=== PATIENT | female | born 1985 | race Caucasian/White ===

== ENCOUNTER 2019-10-23 13:07 | Outpatient (CLI) | payer OTHER | END 2019-10-23 13:23 | disposition home or self-care (01) | LOC: NST 13:07 | DX: Z34.83 Encounter for supervision of other normal pregnancy, third trimester (principal) ==

== ENCOUNTER 2019-11-01 08:55 | Inpatient (IN) | payer OTHER ==
[~2019-11-01] VITALS: Ht 157.5 cm; Wt 2.7 kg
[2019-12-01] MEDS ORDERED: PRENATAL PLUS1 EAC1 PO (19:24)
[2019-12-01] MEDS ORDERED: IRON325 MG PO (19:25)
== END 2019-12-05 19:50 | disposition home or self-care (01) | DRG 788 ==
LOC: OB/GYN 11-27 15:15 → LDR 12-01 19:12 → SURG-SUITE 12-01 19:12
PROVIDERS: ADMIT Obstetrics & Gynecology
PROC: 4A1HXCZ Monitoring of Products of Conception, Cardiac Rate, External Approach (ICD-10-PCS; 2019-12-01)
PROC: 3E033VJ Introduction of Other Hormone into Peripheral Vein, Percutaneous Approach (ICD-10-PCS; 2019-12-01)
PROC: 4A033R1 Measurement of Arterial Saturation, Peripheral, Percutaneous Approach (ICD-10-PCS; 2019-12-02)
PROC: 10D00Z1 Extraction of Products of Conception, Low, Open Approach (ICD-10-PCS; principal; 2019-12-02 14:00)
DX: O61.0 Failed medical induction of labor (principal); O62.0 Primary inadequate contractions; Z3A.40 40 weeks gestation of pregnancy; Z37.0 Single live birth

== ENCOUNTER 2019-11-22 09:05 | Outpatient (CLI) | payer OTHER | END 2019-11-22 10:05 | disposition home or self-care (01) | LOC: NST 09:05 | DX: Z34.83 Encounter for supervision of other normal pregnancy, third trimester (principal) ==

== ENCOUNTER 2019-11-29 07:30 | Outpatient (CLI) | payer OTHER | END 2019-11-29 08:22 | disposition home or self-care (01) | LOC: NST 07:30 | DX: Z34.83 Encounter for supervision of other normal pregnancy, third trimester (principal) ==

== ENCOUNTER 2021-04-15 18:23 | Emergency (ER) | payer OTHER ==
[~2021-04-15] VITALS: Ht 157.5 cm; Wt 57.6 kg
[~2021-04-15 18:23] MED LIST: IRON325 MG PO; PRENATAL PLUS1 EAC1 PO
== END 2021-04-15 22:15 | disposition home or self-care (01) ==
LOC: ER 18:23
DX: O26.892 Other specified pregnancy related conditions, second trimester (principal); Z3A.16 16 weeks gestation of pregnancy; S80.211A Abrasion, right knee, initial encounter; W22.8XXA Striking against or struck by other objects, initial encounter; Y93.89 Activity, other specified; Y92.89 Other specified places as the place of occurrence of the external cause; Y99.8 Other external cause status

== ENCOUNTER 2021-09-08 13:34 | Outpatient (CLI) | payer OTHER | END 2021-09-08 14:50 | disposition home or self-care (01) | LOC: NST 13:34 | PROVIDERS: ATTEND Obstetrics & Gynecology | DX: Z34.83 Encounter for supervision of other normal pregnancy, third trimester (principal) ==

== ENCOUNTER 2021-09-10 07:00 | Inpatient (IN) | payer OTHER ==
[~2021-09-10] VITALS: Ht 157.5 cm; Wt 3.2 kg
== END 2021-09-18 14:39 | disposition home or self-care (01) | DRG 788 ==
LOC: OB/GYN 09-16 07:00 → SURG-SUITE 09-16 07:26 → O/R 09-16 07:26 → OB/GYN 09-16 13:15 → SURG-SUITE 09-16 13:43
PROVIDERS: ADMIT Obstetrics & Gynecology; ATTEND Obstetrics & Gynecology
PROC: 4A1HXFZ Monitoring of Products of Conception, Cardiac Rhythm, External Approach (ICD-10-PCS; 2021-09-16)
PROC: 10D00Z1 Extraction of Products of Conception, Low, Open Approach (ICD-10-PCS; principal; 2021-09-16 13:15)
DX: O34.211 Maternal care for low transverse scar from previous cesarean delivery (principal); Z37.0 Single live birth; Z3A.39 39 weeks gestation of pregnancy